=== PATIENT | female | born 1940 | race Caucasian/White ===

== ENCOUNTER 2016-04-12 18:16 | Emergency (ER) | payer OTHER ==
[2016-04-12 18:24] VITALS: BP 191/90; PULSE 70; TEMP 98.1; BMI 25.0
[2016-04-12] MEDS ORDERED: RANITIDINE HCL 150 MG TABLET (FP) PO ONE (20:01)
[2016-04-12] MEDS ORDERED: MAG HYDROX/AL HYDROX/SIMETH 30 ML UNIT-DOSE CUP PO ONE (20:02)
--- NOTE | 2016-04-12 20:09 | PDOC ---
History of Present Illness - General Chief Complaint: Respiratory Stated Complaint: DIFF BREATHING/STOMACH GAS Time Seen by Provider: 04/12/16 19:27 History Source: Patient Exam Limitations: No Limitations - History of Present Illness Initial Comments: 04/12/16 20:03 Patient is a 75-year-old female with history of gastritis, hypertension, BTL complaining of abdominal bloating and burping for the past 3 days. States she has decreased appetite today because of the bloating. She denies any abdominal pain and is also having flatus. States she was seen by her PMD 2 days ago was given omeprazole and Zantac without relief of symptoms. Denies nausea, vomiting , fever, chills, chest pain. Had a colonoscopy 1 year ago which shows gastritis. PMD: Dr. Piper PMHX: As above PSocX; neg cig, durg, etoh PFamHx: Noncontributory ALL: NKDA GENERAL/CONSTITUTIONAL: [No fever or chills. No weakness. No weight change.] HEAD, EYES, EARS, NOSE AND THROAT: [No change in vision. No ear pain or discharge. No sore throat.] CARDIOVASCULAR: [No chest pain or shortness of breath.] RESPIRATORY: [No cough, wheezing, or hemoptysis.] GASTROINTESTINAL: occ nausea, vomiting, diarrhea or constipation. No rectal bleeding.] GENITOURINARY: [No dysuria, frequency, or change in urination.] MUSCULOSKELETAL: [No joint or muscle swelling or pain. No neck or back pain.] SKIN AND BREASTS: [No rash or easy bruising.] NEUROLOGIC: [No headache, vertigo, loss of consciousness, or loss of sensation.] PSYCHIATRIC: [No depression or anxiety.] ENDOCRINE: [No increased thirst. No abnormal weight change.] HEMATOLOGIC/LYMPHATIC: [No anemia, easy bleeding, or history of blood clots.] ALLERGIC/IMMUNOLOGIC: [No hives or skin allergy. No latex allergy.] GENERAL: [The patient is awake, alert, and fully oriented, in no acute distress. ] HEAD: [Normal with no signs of trauma.] EYES: [Pupils equal, round and reactive to light, extraocular movements intact, sclera anicteric, conjunctiva clear.] ENT: [Ears normal, nares patent, oropharynx clear without exudates. Moist mucous membranes.] NECK: [Normal range of motion, supple without lymphadenopathy, JVD, or masses.] LUNGS: [Breath sounds equal, clear to auscultation bilaterally. No wheezes, and no crackles.] HEART: [Regular rate and rhythm, normal S1 and S2 without murmur, rub.] ABDOMEN: [Soft, nontender, normoactive bowel sounds, mild distention. No guarding, no rebound. No masses.] EXTREMITIES: [Normal range of motion, no edema. No clubbing or cyanosis. No cords, erythema, or tenderness.] NEUROLOGICAL: [Cranial nerves II through XII grossly intact. Normal speech, normal gait.] PSYCH: [Normal mood, normal affect.] SKIN: [Warm, Dry, normal turgor, no rashes or lesions noted.] 04/12/16 20:09 Past History - Past Medical History Allergies/Adverse Reactions: Allergies Allergy/AdvReac Type Severity Reaction Status Date / Time No Known Allergies Allergy Verified 04/12/16 18:24 Home Medications: Ambulatory Orders Anastrozole [Arimidex] 1 mg PO DAILY 10/22/11 Enalapril Maleate [Vasotec -] 10 mg PO BID 10/22/11 Nebivolol HCl [Bystolic] 10 mg PO HS 10/22/11 Ranitidine [Zantac] 150 mg PO BID 11/09/12 Sucralfate Oral Suspension [Carafate *Oral Susp*] 1 gm PO BID 11/09/12 Omeprazole 20 mg PO DAILY 04/12/16 Anemia: No Asthma: No 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) Cardiac Disorders: No CVA: No COPD: No CHF: No Dementia: No Diabetes: No GI Disorders: Yes (GERD) Disorders: No HTN: Yes Hypercholesterolemia: No Liver Disease: No Seizures: No Thyroid Disease: No - Surgical History Abdominal Surgery: No Appendectomy: No Cardiac Surgery: No Cholecystectomy: No Lung Surgery: No Neurologic Surgery: No Orthopedic Surgery: No - Immunization History Td Vaccination: Yes Immunization Up to Date: Yes - Psycho/Social/Smoking Cessation Hx Anxiety: No Suicidal Ideation: No Smoking Status: No Smoking History: Never smoked Years of Tobacco Use: 0 Number of Cigarettes Smoked Daily: 0 Cigars Per Day: 0 Hx Alcohol Use: No Drug/Substance Use Hx: No Substance Use Type: None Hx Substance Use Treatment: No *Physical Exam - Vital Signs Last Vital Signs Temp Pulse Resp BP Pulse Ox 98.1 F 70 20 191/90 99 04/12/16 18:21 04/12/16 18:21 04/12/16 18:21 04/12/16 18:21 04/12/16 18:21 ED Treatment Course - RADIOLOGY Radiology Studies Ordered: Category Date Time Status ABDOMEN FLAT & UPRIGHT [RAD] Stat Radiology 04/12/16 19:59 Ordered CHEST - PA [RAD] Stat Radiology 04/12/16 19:59 Ordered Medical Decision Making - Medical Decision Making 04/12/16 20:09 Patient is a 75-year-old female with history of gastritis, hypertension, BTL complaining of abdominal bloating and burping for the past 3 days, with no abdominal pain and normal bowel function. Symptoms are most likely consistent with gastritis. However we will get a obstructive series to rule out obstruction. Zantac 150 milligrams and Maalox. Patient needs to follow-up with GI and with her PMD EKG SR rate 58, LAD, flattened, aVF, V3-V6 unchanged from prior trop neg I discussed the physical exam findings, ancillary test results and final diagnoses with the patient. I answered all of the patient's questions. The patient was satisfied with the care received and felt comfortable with the discharge plan and treatment plan. The Patient agrees to follow up with the primary care physician within 24-72 hours. *DC/Admit/Observation/Transfer Diagnosis at time of Disposition: Gastritis Qualifiers: Gastritis type: unspecified gastritis Chronicity: unspecified Gastritis bleeding: without bleeding Qualified Code(s): K29.70 - Gastritis, unspecified, without bleeding - Discharge Dispostion Disposition: HOME Condition at time of disposition: Stable - Referrals Referrals: Ridge Piper MD [Primary Care Provider] - - Patient Instructions Printed Discharge Instructions: DI for Gastritis Additional Instructions: Your Discharge Instructions: You must call primary care physician within 24 hours to arrange follow-up. Return to the Emergency Department with any new, persistent or worsening symptoms, for fever, chills, SOB, dizziness or any other concerning changes that may occur. You may try taking some Maalox. You must follow-up with your GI.
[2016-04-12] MEDS ORDERED: RANITIDINE HCL 150 MG TABLET (FP) ONE (20:14)
[2016-04-12] MEDS ORDERED: MAG HYDROX/AL HYDROX/SIMETH 30 ML UNIT-DOSE CUP ONE (20:14)
[2016-04-12 23:14] LABS: TROPONIN I < 0.02 ng/ml (0.00-0.05)
--- NOTE | 2016-04-13 09:14 | EKG ---
Test Reason : Blood Pressure : / mmHG Vent. Rate : 058 BPM Atrial Rate : 058 BPM P-R Int : 178 ms QRS Dur : 082 ms QT Int : 428 ms P-R-T Axes : 059 -16 -05 degrees QTc Int : 420 ms SINUS BRADYCARDIA NONSPECIFIC T WAVE ABNORMALITY ABNORMAL ECG WHEN COMPARED WITH ECG OF 17-OCT-2012 02:47, NO SIGNIFICANT CHANGE WAS FOUND Confirmed by TRAVIS MOROCHO MD ([id number]) on 04/13/2016 9:14:34 AM Referred By: Confirmed By:TRAVIS MOROCHO MD
== END 2016-04-12 23:33 | disposition home or self-care (01) ==
LOC: JER 18:16
DX: K29.70 Gastritis, unspecified, without bleeding (principal); I10 Essential (primary) hypertension; Z85.3 Personal history of malignant neoplasm of breast
CPT/HCPCS: 36415; 71020-TC; 74020-TC; 82550; 84484; 93005; 93010; 99283-25

== ENCOUNTER 2021-07-25 20:47 | Emergency (ER) | payer OTHER ==
[2021-07-25 20:52] VITALS: TEMP 98; BMI 21.2
[2021-07-25 22:48] VITALS: BP 162/82; PULSE 64
== END 2021-07-25 22:54 | disposition home or self-care (01) ==
LOC: JER 20:47
DX: I10 Essential (primary) hypertension (principal)
CPT/HCPCS: 99283-25

== ENCOUNTER 2021-08-30 12:17 | Emergency (ER) | payer OTHER ==
[2021-08-30 12:36] VITALS: BP 158/83; TEMP 99.5; BMI 49.1
[2021-08-30] MEDS ORDERED: SODIUM CHLORIDE 0.9% 500 ML INFUS.BAG IV ONE (13:31)
[2021-08-30] MEDS ORDERED: ACETAMINOPHEN 500 MG TABLET (FP) PO ONE (13:33)
[2021-08-30] MEDS ORDERED: ONDANSETRON 4 MG/2 ML VIAL IVPUSH ONE (13:33)
[2021-08-30] MEDS ORDERED: ACETAMINOPHEN 325 MG TABLET (FP) ONE (13:58)
[2021-08-30] MEDS ORDERED: ONDANSETRON 4 MG/2 ML VIAL ONE (13:58)
[2021-08-30 15:01] LABS: BASO % 0.6 % (0-2.0); HEMATOCRIT 36.8 % (32.4-45.2); HEMOGLOBIN 12.1 GM/dL (10.7-15.3); LYMPH % 14.2 % (8-40); MCH 27.6 pg (25.7-33.7); MCHC 32.9 g/dl (32.0-36.0); MEAN CELL VOLUME 83.8 fl (80-96); MEAN PLT VOLUME 7.9 fl (7.5-11.1); MONO % 18.9 % (3.8-10.2); NEUT % 66.3 % (42.8-82.8); PLATELET COUNT 226 10^3/uL (134-434); RBC 4.39 M/mm3 (3.60-5.2); RDW 13.7 % (11.6-15.6); WHITE BLOOD COUNT 3.6 K/mm3 (4.0-10.0)
[2021-08-30 15:25] LABS: CALCIUM 8.4 mg/dL (8.5-10.1)
[2021-08-30 15:27] LABS: ALBUMIN 3.4 g/dl (3.4-5.0); BLOOD UREA NITROGEN 9.2 mg/dL (7-18)
[2021-08-30 15:30] LABS: BILIRUBIN,TOTAL 0.4 mg/dL (0.2-1); CREATININE 0.7 mg/dL (0.55-1.3)
[2021-08-30] MEDS ORDERED: BEBTELOVIMAB (EUA) 175 MG/2 ML VIAL IVPUSH ONE (16:23)
[2021-08-30 18:52] VITALS: PULSE 88
== END 2021-08-30 18:52 | disposition home or self-care (01) ==
LOC: JER 12:17
PROC: 3E03329 Introduction of Other Anti-infective into Peripheral Vein, Percutaneous Approach (ICD-10-PCS; principal; 2021-08-30)
PROC: 3E033GC Introduction of Other Therapeutic Substance into Peripheral Vein, Percutaneous Approach (ICD-10-PCS; 2021-08-30)
DX: U07.1 COVID-19 (principal)
CPT/HCPCS: 0241U-QW; 36415; 80053; 85025; 96374; 96375; 99284-25; M0222; Q0222

== ENCOUNTER 2021-09-04 13:23 | Emergency (ER) | payer OTHER ==
[2021-09-04 13:29] VITALS: TEMP 98.1; BMI 22.2
[2021-09-04] MEDS ORDERED: ACETAMINOPHEN 1000 MG/100 ML BAG IVPB ONE (14:34)
[2021-09-04] MEDS ORDERED: METOCLOPRAMIDE HCL INJECTION 10 MG/2 ML VIAL IVPUSH ONE (14:34)
[2021-09-04] MEDS ORDERED: SODIUM CHLORIDE 0.9% 500 ML INFUS.BAG IV ONE ×2 (14:34→18:54)
[2021-09-04] MEDS ORDERED: ACETAMINOPHEN INJECTION 100 ML IVPB ONE (15:00)
[2021-09-04] MEDS ORDERED: METOCLOPRAMIDE HCL INJECTION 10 MG/2 ML VIAL ONE (15:00)
[2021-09-04 16:38] LABS: BASO % 0.7 % (0-2.0); EOS % 0.3 % (0-4.5); HEMATOCRIT 38.7 % (32.4-45.2); HEMOGLOBIN 12.9 GM/dL (10.7-15.3); LYMPH % 27.1 % (8-40); MCH 27.8 pg (25.7-33.7); MCHC 33.2 g/dl (32.0-36.0); MEAN CELL VOLUME 83.6 fl (80-96); MEAN PLT VOLUME 7.8 fl (7.5-11.1); MONO % 14.5 % (3.8-10.2); NEUT % 57.4 % (42.8-82.8); PLATELET COUNT 244 10^3/uL (134-434); RBC 4.64 M/mm3 (3.60-5.2); RDW 13.9 % (11.6-15.6); WHITE BLOOD COUNT 3.6 K/mm3 (4.0-10.0)
[2021-09-04 16:46] LABS: URINE APPEARANCE CLEAR; URINE BILIRUBIN NEGATIVE (NEGATIVE); URINE COLOR YELLOW; URINE GLUCOSE (UA) NEGATIVE (NEGATIVE); URINE KETONE NEGATIVE (NEGATIVE); URINE LEUK ESTERASE NEGATIVE (NEGATIVE); URINE NITRITE NEGATIVE (NEGATIVE); URINE PROTEIN TRACE (NEGATIVE); URINE UROBILINOGEN 0.2 mg/dL (0.2-1.0)
[2021-09-04 16:58] LABS: ALBUMIN 3.8 g/dl (3.4-5.0); BLOOD UREA NITROGEN 8.3 mg/dL (7-18)
[2021-09-04 17:01] LABS: CREATININE 0.8 mg/dL (0.55-1.3)
[2021-09-04 17:03] LABS: BILIRUBIN,TOTAL 0.6 mg/dL (0.2-1); TOT PROT 7.9 g/dl (6.4-8.2)
[2021-09-04 17:41] VITALS: BP 197/79; PULSE 59
[2021-09-04 22:07] LABS: BLOOD UREA NITROGEN 7.2 mg/dL (7-18); CALCIUM 8.4 mg/dL (8.5-10.1)
[2021-09-04 22:11] LABS: CREATININE 0.7 mg/dL (0.55-1.3)
== END 2021-09-04 21:14 | disposition home or self-care (01) ==
LOC: JER 13:23
PROC: 3E033GC Introduction of Other Therapeutic Substance into Peripheral Vein, Percutaneous Approach (ICD-10-PCS; principal; 2021-09-04)
DX: R19.7 Diarrhea, unspecified (principal)
CPT/HCPCS: 0241U-QW; 36415; 71045-TC-FY; 80048; 80053; 81003; 84484; 85025; 87086; 93005; 93010; 96374; 96375; 99285-25

== ENCOUNTER 2021-10-14 20:38 | Emergency (ER) | payer OTHER ==
[2021-10-14 20:49] VITALS: TEMP 98.2; BMI 21.4
[2021-10-14] MEDS ORDERED: SODIUM CHLORIDE 0.9% 500 ML INFUS.BAG IV ONE (22:53)
[2021-10-14] MEDS ORDERED: ACETAMINOPHEN 1000 MG/100 ML BAG IVPB ONE (22:53)
[2021-10-14] MEDS ORDERED: FAMOTIDINE 20 MG/50 ML IVPB 20 MG/50 ML MG IVPB ONE ×2 (22:53→23:27)
[2021-10-14] MEDS ORDERED: ONDANSETRON 4 MG/2 ML VIAL IVPB ONE (22:53)
[2021-10-14] MEDS ORDERED: ACETAMINOPHEN INJECTION 100 ML IVPB ONE (23:27)
[2021-10-14] MEDS ORDERED: ONDANSETRON 4 MG/2 ML VIAL ONE (23:27)
[2021-10-14 23:54] LABS: BASO % 0.7 % (0-2.0); EOS % 0.7 % (0-4.5); EPI CELLS >36 /uL (0-25.1); HEMATOCRIT 40.1 % (32.4-45.2); HEMOGLOBIN 13.2 GM/dL (10.7-15.3); HYALINE CASTS 0 /uL (0-3.1); LYMPH % 23.2 % (8-40); MCH 27.9 pg (25.7-33.7); MCHC 33.1 g/dl (32.0-36.0); MEAN CELL VOLUME 84.4 fl (80-96); MEAN PLT VOLUME 7.6 fl (7.5-11.1); MONO % 11.3 % (3.8-10.2); NEUT % 64.1 % (42.8-82.8); PH,URINE 7.5 (5.0-8.0); PLATELET COUNT 263 10^3/uL (134-434); RBC 4.75 M/mm3 (3.60-5.2); RDW 14.1 % (11.6-15.6); URINE APPEARANCE CLEAR; URINE BACTERIA 40 /uL (0-1359); URINE BILIRUBIN NEGATIVE (NEGATIVE); URINE COLOR YELLOW; URINE GLUCOSE (UA) NEGATIVE (NEGATIVE); URINE KETONE NEGATIVE (NEGATIVE); URINE LEUK ESTERASE 2+ (NEGATIVE); URINE NITRITE NEGATIVE (NEGATIVE); URINE PROTEIN NEGATIVE (NEGATIVE); URINE RBC 1 /uL (0-23.9); URINE UROBILINOGEN 0.2 mg/dL (0.2-1.0); URINE WBC 16 /uL (0-25.8); WHITE BLOOD COUNT 5.9 K/mm3 (4.0-10.0)
[2021-10-15 00:10] LABS: INR 1.04 (0.83-1.09)
[2021-10-15 00:12] LABS: ACTIVATED PTT 30.5 SECONDS (25.2-36.5)
[2021-10-15 00:25] LABS: ALBUMIN 3.4 g/dl (3.4-5.0); BLOOD UREA NITROGEN 12.1 mg/dL (7-18); CALCIUM 8.9 mg/dL (8.5-10.1); MAGNESIUM 2.3 mg/dL (1.8-2.4)
[2021-10-15 00:28] LABS: CREATININE 0.7 mg/dL (0.55-1.3); PHOSPHOROUS 3.3 mg/dL (2.5-4.9)
[2021-10-15 00:30] LABS: BILIRUBIN,TOTAL 0.5 mg/dL (0.2-1); TOT PROT 7.7 g/dl (6.4-8.2)
[2021-10-15 01:29] VITALS: BP 155/75; PULSE 68
== END 2021-10-15 01:29 | disposition home or self-care (01) ==
LOC: JER 20:38
PROC: 3E0333Z Introduction of Anti-inflammatory into Peripheral Vein, Percutaneous Approach (ICD-10-PCS; principal; 2021-10-14)
PROC: 3E033GC Introduction of Other Therapeutic Substance into Peripheral Vein, Percutaneous Approach (ICD-10-PCS; 2021-10-14)
PROC: 3E033GC Introduction of Other Therapeutic Substance into Peripheral Vein, Percutaneous Approach (ICD-10-PCS; 2021-10-14)
DX: R11.2 Nausea with vomiting, unspecified (principal)
CPT/HCPCS: 0241U-QW; 36415; 80053; 81003; 83690; 83735; 84100; 84484; 85025; 85610; 85730; 87077; 87086; 93005; 93010; 96374; 96375; 99284-25

== ENCOUNTER 2021-11-26 04:17 | Day surgery (SDC) | payer OTHER ==
[2021-11-25 18:30] VITALS: BMI 21.2
[~2021-11-26 04:17] MED LIST: ACETAMINOPHEN 325 MG TABLET (FP) PO PRN
[2021-11-26] MEDS ORDERED: TETRACAINE 0.5% OPHTH SOLN 2 ML BOTTLE ONE (07:20)
[2021-11-26] MEDS ORDERED: POVIDONE-IODINE 5% OPHTHALMIC PREP 30 ML SOLUTION ONE (07:20)
[2021-11-26] MEDS ORDERED: BSS (NA/CA/MG/K) BALANCED SALT SOLUTION OPHTH SOLN 15 ML BOTTLE ONE (07:20)
[2021-11-26] MEDS ORDERED: KETOROLAC TROMETHAMINE 0.5% EYE DROP 1 DROP DROPS ONE (09:05)
[2021-11-26] MEDS ORDERED: OFLOXACIN 0.3% OPHTHALMIC SOLUTION 5 ML BOTTLE ONE (09:06)
[2021-11-26] MEDS ORDERED: PHENYLEPHRINE 2.5% OPTHALMIC DROP BOTTLE ONE (09:06)
[2021-11-26] MEDS ORDERED: CYCLOPENTOLATE HCL 1% OPHTH SOLN 2 ML BOTTLE ONE (09:06)
[2021-11-26] MEDS ORDERED: TROPICAMIDE 1% OPHTH SOLN 15 ML BOTTLE ONE (09:06)
[2021-11-26] MEDS: KETOROLAC TROMETHAMINE 0.5% EYE DROP 1 DROP DROPS OP SCH ×3 (09:10→09:30)
[2021-11-26] MEDS: OFLOXACIN 0.3% OPHTHALMIC SOLUTION 5 ML BOTTLE OP SCH ×3 (09:10→09:30)
[2021-11-26] MEDS: PHENYLEPHRINE 2.5% OPHTH SOLN 15 ML BOTTLE OP SCH ×3 (09:10→09:30)
[2021-11-26] MEDS: CYCLOPENTOLATE HCL 1% OPHTH SOLN 2 ML BOTTLE OP SCH ×3 (09:10→09:30)
[2021-11-26] MEDS: TROPICAMIDE 1% OPHTH SOLN 15 ML BOTTLE OP SCH ×3 (09:10→09:30)
[2021-11-26 09:15] VITALS: RESP 18
[2021-11-26] MEDS ORDERED: MIDAZOLAM HCL 2 MG/2 ML SINGLE DOSE VIAL ONE (11:08)
[2021-11-26] MEDS ORDERED: TETRACAINE 0.5% OPHTH SOLN 2 ML BOTTLE OS ONE (11:09)
[2021-11-26] MEDS ORDERED: POVIDONE-IODINE 5% OPHTHALMIC PREP 30 ML SOLUTION OS ONE (11:12)
[2021-11-26] MEDS ORDERED: BSS (NA/CA/MG/K) BALANCED SALT SOLUTION OPHTH SOLN 15 ML BOTTLE IO ONE (11:18)
[2021-11-26] MEDS ORDERED: LIDOCAINE HCL 1% PRESERVATIVE FREE - 30ML VIAL IO ONE (11:19)
[2021-11-26] MEDS ORDERED: HYALURONATE SODIUM 23 MG/1 ML SYRINGE IO ONE (11:20)
[2021-11-26] MEDS ORDERED: TRYPAN BLUE 0.5 ML DISP.SYRIN IO ONE (11:21)
[2021-11-26] MEDS ORDERED: CHONDROITIN SU A/HYALUR SOD 1 KIT IO ONE (11:22)
[2021-11-26] MEDS ORDERED: EPINEPHrine/PF 1 MG/1 ML (1:1,000) AMPULE SQ ONE (11:26)
[2021-11-26 13:37] VITALS: TEMP 98.7
[2021-11-26 13:41] VITALS: BP 179/67; PULSE 55
== END 2021-11-26 13:05 | disposition home or self-care (01) ==
LOC: JASU-SURG 04:17
PROVIDERS: ATTEND Ophthalmology
PROC: 08RK3JZ Replacement of Left Lens with Synthetic Substitute, Percutaneous Approach (ICD-10-PCS; principal; 2021-11-26 11:19)
DX: H26.8 Other specified cataract (principal)